=== PATIENT | female | born 1990 | race Native Hawaiian/Other Pacific Islander ===

== ENCOUNTER 2018-07-23 09:37 | Emergency (ER) | payer OTHER ==
[2018-07-23 09:40] VITALS: TEMP 98.4
[2018-07-23] MEDS ORDERED: LIDOCAINE 1%-EPI 1:100,000 30 ML VIAL SQ STA (10:15)
--- NOTE | 2018-07-23 10:19 | ED ---
General Adult HPI - General Chief complaint: Extremity Injury, Lower Stated complaint: torn toenail Source: patient Mode of arrival: ambulatory Limitations: no limitations - History of Present Illness Initial comments: Dictation was produced using [employer] dictation software. please excuse any grammatical, word or spelling errors. Chief Complaint: 19-year-old female with past medical history of migraines kidney stones presents with toenail avulsion. History of Present Illness:-year-old female was moving a bookshelf when a piece of the lower part the bookshelf lifted her total of forcefully. States her toenail feels loose. She has severe pain to her great toe on her right foot. The ROS documented in this emergency department record has been reviewed and confirmed by me. Those systems with pertinent positive or negative responses have been documented in the HPI. All other systems are other negative and/or noncontributory. - Related Data Home Medications Medication Instructions Recorded Confirmed Acetaminophen-Codeine 300-30mg 1 - 2 tab PO Q4HR PRN 07/13/16 07/13/16 [Tylenol w/codeine #3] Pedi Multivit No.25/Folic Acid 600 mcg PO DAILY 07/13/16 07/13/16 [Flintstones Multivit Chew Tab] Previous Rx's Medication Instructions Recorded Ketorolac [Toradol] 10 mg PO Q6HR PRN #15 tab 07/13/16 Metoclopramide HCl [Reglan] 10 mg PO Q6HR PRN #15 tablet 07/13/16 Allergies Allergy/AdvReac Type Severity Reaction Status Date / Time sulfamethoxazole Allergy Rash/Hives Verified 07/23/18 09:40 [From ] trimethoprim [From ] Allergy Rash/Hives Verified 07/23/18 09:40 Review of Systems ROS Statement: Those systems with pertinent positive or pertinent negative responses have been documented in the HPI. ROS Other: All systems not noted in ROS Statement are negative. Past Medical History Past Medical History: No Reported History Additional Past Medical History / Comment(s): migraine, kidney stones History of Any Multi-Drug Resistant Organisms: None Reported Past Surgical History: Section, Orthopedic Surgery Past Anesthesia/Blood Transfusion Reactions: No Reported Reaction Past Psychological History: No Psychological Hx Reported Smoking Status: Current every day smoker Past Alcohol Use History: None Reported Past Drug Use History: None Reported - Past Family History Father Family Medical History: No Reported History General Exam - General Exam Comments Initial Comments: PHYSICAL EXAM: General Impression: Alert and oriented x3, not in acute distress HEENT: Normocephalic atraumatic, extra-ocular movements intact, pupils equal and reactive to light bilaterally, mucous membranes moist. Cardiovascular: Heart regular rate and rhythm, S1&S2 audible, no murmurs, rubs or gallops Chest: Lungs clear to auscultation bilaterally, no rhonchi, no wheeze, no rales Abdomen: Bowel sounds present, abdomen soft, non-tender, non-distended, no organomegaly Musculoskeletal: Pulses present and equal in all extremities, no peripheral edema Motor: Power 5/5 bilaterally, no focal deficits noted Neurological: CN II-XII grossly intact, no focal motor or sensory deficits noted Skin: Intact with no visualized rashes Psych: Normal affect and mood Foot: Right toenail medially is folded. Small defect in the nail for approximately 3 mm bilaterally. Limitations: no limitations Course Vital Signs 07/23/18 09:38 Temperature 98.4 F Pulse Rate 80 Respiratory 20 Rate Blood Pressure 140/67 O2 Sat by Pulse 99 Oximetry Medical Decision Making - Medical Decision Making ED course: 27-year-old female with clinical presentation consistent with partial nail avulsion of the right great toenail. Vital signs upon arrival are within acceptable limits. Lidocaine was used to anesthetize the toe. Nail bed was inspected showing no lacerations. Patient did have history of ingrown toenail to the medial aspect. Patient tolerated procedure well. There was a part of the lateral toenail that was cracked that was partially ingrown that was removed. Wound was irrigated and dressed. Patient has appointment with her sculpture instructor on . She is advised to follow-up or get an earlier appointment for reevaluation of partially avulsed toenail. Patient understandable agreeable to disposition. Patient advised to fill over-the- counter Motrin for pain control. Disposition Clinical Impression: Toenail avulsion Disposition: HOME SELF-CARE Condition: Good Instructions: Nail Avulsion (ED) Additional Instructions: follow up with sculpture instructor as scheduled Is patient prescribed a controlled substance at d/c from ED?: No Referrals: Michele Bhakta MD [Primary Care Provider] - 1-2 days Time of Disposition: 11:00
[2018-07-23] MEDS ORDERED: LIDOCAINE 1% INJ 10MG/ML (20 ML MDV) SQ ONE (10:57)
[2018-07-23 11:31] VITALS: BP 108/79; PULSE 62; RESP 16
== END 2018-07-23 11:32 | disposition home or self-care (01) ==
LOC: EC 09:37
DX: S91.201A Unspecified open wound of right great toe with damage to nail, initial encounter (principal); F17.200 Nicotine dependence, unspecified, uncomplicated; Z88.2 Allergy status to sulfonamides; X58.XXXA Exposure to other specified factors, initial encounter; Y93.89 Activity, other specified; Y92.009 Unspecified place in unspecified non-institutional (private) residence as the place of occurrence of the external cause
CPT/HCPCS: 99283; J2001

== ENCOUNTER → 2019-03-09 | Outpatient (CLI) | payer SELFPAY ==
[2019-03-09 08:41] LABS: Basophils % (A) 1 %; Eosinophils # (A) 0.4 k/uL (0-0.7); Eosinophils % (A) 6 %; HCT 40.5 % (34.0-46.0); HGB 13.3 gm/dL (11.4-16.0); Lymphocytes # (A) 1.9 k/uL (1.0-4.8); Lymphocytes % (A) 29 %; MCH 30.6 pg (25.0-35.0); MCHC 32.9 g/dL (31.0-37.0); Mean Platelet Volume 7.7; Monocytes # (A) 0.3 k/uL (0-1.0); Monocytes % (A) 5 %; Neutrophils # (A) 3.9 k/uL (1.3-7.7); Neutrophils % (A) 57 %; Platelet Count 245 k/uL (150-450); RBC 4.35 m/uL (3.80-5.40); RDW 13.5 % (11.5-15.5); WBC 6.7 k/uL (3.8-10.6)
[2019-03-09 09:00] LABS: INR 0.9 (<1.2); Partial Thromboplastin Time 25.8 sec (22.0-30.0); Prothrombin Time 9.7 sec (9.0-12.0)
--- NOTE | 2019-03-09 09:26 | XR ---
EXAMINATION TYPE: XR chest 2V DATE OF EXAM: 03/09/2019 COMPARISON: NONE HISTORY: History of tobacco use. Chronic bronchitis. TECHNIQUE: Frontal and lateral views of the chest are obtained. FINDINGS: There is no focal air space opacity, pleural effusion, or pneumothorax seen. The cardiac silhouette size is within normal limits. The osseous structures are intact. IMPRESSION: No acute cardiopulmonary process.
[2019-03-09 12:55] LABS: Erythrocyte Sedimentation Rate 18 mm/hr (0-20)
[2019-03-09 17:36] LABS: Albumin 4.4 g/dL (3.80-4.90); Albumin/Globulin Ratio 2.1 (1.60-3.17); Anion Gap 7.4 mmol/L (4.00-12.00); Carbon Dioxide 22.6 mmol/L (21.6-31.8); Globulin 2.1 g/dL (1.6-3.3); Potassium 4.3 mmol/L (3.5-5.5); Total Bilirubin 0.4 mg/dL (0.3-1.2); Total Protein 6.5 g/dL (6.2-8.2)
[2019-03-09 17:37] LABS: C Reactive Protein 0.5 mg/dL (0.0-0.8); LDL Cholesterol,Calculated 90.8 mg/dL (0.0-131.0); VLDL Calculation 17.2 mg/dL (5.00-40.00)
[2019-03-09 18:54] LABS: Hemoglobin A1C 5.2 % (4.0-6.0)
== END | disposition home or self-care (01) ==
LOC: LABWHC1 08:06
PROVIDERS: ATTEND Internal Medicine
DX: J42 Unspecified chronic bronchitis (principal); E03.9 Hypothyroidism, unspecified; D64.9 Anemia, unspecified; E11.9 Type 2 diabetes mellitus without complications; E78.5 Hyperlipidemia, unspecified; N20.0 Calculus of kidney; E66.9 Obesity, unspecified; E55.9 Vitamin D deficiency, unspecified; F17.200 Nicotine dependence, unspecified, uncomplicated
CPT/HCPCS: 36415; 71046; 80053; 80061; 82306; 82550; 83036; 84443; 85025; 85610; 85652; 85730; 86140

== ENCOUNTER → 2019-03-13 | Outpatient (CLI) | payer OTHER ==
--- NOTE | 2019-03-13 18:18 | CT ---
EXAMINATION TYPE: CT abdomen pelvis w con DATE OF EXAM: 03/13/2019 COMPARISON: 07/13/2016 HISTORY: RLQ pain x2 months CT DLP: 1658 mGycm Automated exposure control for dose reduction was used. TECHNIQUE: Helical acquisition of images was performed from the lung bases through the pelvis. CONTRAST: Performed with Oral Contrast and with IV Contrast, patient injected with 100 mL of Isovue 300. FINDINGS: Lung bases are clear. There is no pleural effusion. Heart size is normal. There is no pericardial eff usion. There is low attenuation in the liver consistent with fatty infiltration. Stomach appears normal. Spl een appears normal. Pancreas appears normal. Bile ducts are not dilated. Gallbladder appears normal. There is no adrenal mass. Kidneys show satisfactory contrast opacification. There is no hydronephrosi s. There is no retroperitoneal adenopathy. Ureters are not dilated. Bladder distends smoothly. Uterus is anteverted. There is no free fluid in the pelvis. There is no in guinal hernia. There is no evidence of a pelvic mass. There is no mesenteric edema. There is small umbilical hernia contains fat. There is no ascites. Ther e is no sign of free air. The appendix appears normal. There is no evidence of a bowel obstruction. T here is mild narrowing at L5-S1 disc space. Lumbar vertebra have normal alignment. Bony pelvis is int act. I see no bony destructive process. IMPRESSION: NEGATIVE CT SCAN OF THE ABDOMEN AND PELVIS. FATTY INFILTRATION OF THE LIVER. NORMAL APPENDIX. I DO NO T SEE A CAUSE FOR RIGHT LOWER QUADRANT PAIN.
== END ==
LOC: RADCTMAIN 15:53
PROVIDERS: ATTEND Internal Medicine
DX: K76.0 Fatty (change of) liver, not elsewhere classified (principal); R10.31 Right lower quadrant pain; Z88.1 Allergy status to other antibiotic agents; Z88.2 Allergy status to sulfonamides
CPT/HCPCS: 74177; Q9967

== ENCOUNTER 2020-02-20 20:38 | Emergency (ER) | payer OTHER ==
[2020-02-20] MEDS ORDERED: KETOROLAC 30 MG/ML 1 ML VIAL IVP STA (21:06)
[2020-02-20] MEDS ORDERED: SODIUM POLYSTYRENE SULFONATE 15 GM/60 ML BOTTLE PO ONE (21:07)
[2020-02-20] MEDS ORDERED: INSULIN REGULAR 100 UNIT/ML VIAL IV ONE (21:07)
[2020-02-20] MEDS ORDERED: DEXTROSE 50% SYRINGE 50 ML IVP ONE (21:07)
[2020-02-20 21:38] LABS: Basophils % (A) 0 %; Eosinophils # (A) 0.1 k/uL (0-0.7); Eosinophils % (A) 2 %; HCT 39.3 % (34.0-46.0); HGB 13.5 gm/dL (11.4-16.0); Lymphocytes # (A) 1.8 k/uL (1.0-4.8); Lymphocytes % (A) 38 %; MCH 30.6 pg (25.0-35.0); MCHC 34.3 g/dL (31.0-37.0); MCV 89.3 fL (80.0-100.0); Mean Platelet Volume 7.9; Monocytes # (A) 0.6 k/uL (0-1.0); Monocytes % (A) 12 %; Neutrophils # (A) 2.1 k/uL (1.3-7.7); Neutrophils % (A) 44 %; Platelet Count 247 k/uL (150-450); RDW 12.5 % (11.5-15.5); WBC 4.8 k/uL (3.8-10.6)
--- NOTE | 2020-02-20 21:46 | ED ---
General Adult HPI - General Chief complaint: Neck Pain/Injury Stated complaint: Fever Time Seen by Provider: 02/20/20 20:49 Source: patient, RN notes reviewed, old records reviewed Mode of arrival: ambulatory Limitations: no limitations - History of Present Illness Initial comments: Patient is a 29-year-old female presents for his from today with 2 days of myalgias, minor cough, and fevers. She states that she is mainly concerned because she's been having neck pain with movement when she is having a fever. She reports that once her fever goes down at diminishes. She has a mild headache as well. She denies any known contrast contacts of any sick patient's or Coban positive Patient. She reports she's been at home for the past few weeks only with her children. Patient states that she has again Tylenol at 7 PM. She states she feels that she's Maxalt maxed out on her Tylenol today has not had any Motrin. - Related Data Home Medications Medication Instructions Recorded Confirmed Pedi Multivit No.25/Folic Acid 600 mcg PO DAILY 07/13/16 02/20/20 [Flintstones Multivit Chew Tab] Allergies Allergy/AdvReac Type Severity Reaction Status Date / Time sulfamethoxazole Allergy Rash/Hives Verified 07/23/18 09:40 [From ] trimethoprim [From ] Allergy Rash/Hives Verified 07/23/18 09:40 Review of Systems ROS Statement: Those systems with pertinent positive or pertinent negative responses have been documented in the HPI. ROS Other: All systems not noted in ROS Statement are negative. Past Medical History Past Medical History: No Reported History Additional Past Medical History / Comment(s): migraine, kidney stones History of Any Multi-Drug Resistant Organisms: None Reported Past Surgical History: Section, Orthopedic Surgery Past Anesthesia/Blood Transfusion Reactions: No Reported Reaction Past Psychological History: No Psychological Hx Reported Smoking Status: Current every day smoker Past Alcohol Use History: None Reported Past Drug Use History: Marijuana - Past Family History Father Family Medical History: No Reported History General Exam - General Exam Comments Initial Comments: Alert and oriented well-appearing 29-year-old female. No distress. Limitations: no limitations General appearance: alert, in no apparent distress Head exam: Present: atraumatic, normocephalic, normal inspection Eye exam: Present: normal appearance, PERRL, EOMI. Absent: scleral icterus, conjunctival injection, periorbital swelling ENT exam: Present: normal exam, mucous membranes moist Neck exam: Present: normal inspection, full ROM, other (no cervical tendernes. Negative kernig and brudzinski test. ). Absent: tenderness, meningismus, lymphadenopathy Respiratory exam: Present: normal lung sounds bilaterally. Absent: respiratory distress, wheezes, rales, rhonchi, stridor Cardiovascular Exam: Present: regular rate, normal rhythm, normal heart sounds. Absent: systolic murmur, diastolic murmur, rubs, gallop, clicks GI/Abdominal exam: Present: soft, normal bowel sounds. Absent: distended, tenderness, guarding, rebound, rigid Psychiatric exam: Present: normal affect, normal mood Skin exam: Present: warm, dry, intact, normal color. Absent: rash Course Vital Signs 02/20/20 02/20/20 20:40 22:30 Temperature 98.3 F 98.0 F Pulse Rate 95 60 Respiratory 18 17 Rate Blood Pressure 119/76 123/89 O2 Sat by Pulse 98 99 Oximetry Medical Decision Making - Medical Decision Making This patient's a 29-year-old female presents today for chief complaint of intermittent fevers for the past 2 days, complaining of some neck pain and muscle aches and headaches of related to this. She reports that this only occurs when her fever is occurring but did not reports the pain diminishes once or fevers controlled with Tylenol or Motrin. Upon arrival here she has no fever. She has negative meningeal signs negative Kernig's and Brudzinski. No photophobia. She is no neurological deficits. No rashes. She otherwise appears well. She did complain of minor cough. Patient had blood work reviewed. No leukocytosis. Covid swab is negative. Chest x-rays negative for any acute process. Discussed likely viral syndrome. Neck has no tenderness and normal range of motion since and no stiffness at this time. Discussed was likely myalgias related to a viral syndrome. Discussed following up with primary care doctor. - Lab Data Result diagrams: 02/20/20 21:02/20/20 21:20 Lab Results 02/20/20 02/20/20 02/20/20 Range/Units : 21:20 21:25 WBC 4.8 (3.8-10.6) k/uL RBC 4.40 (3.80-5.40) m/uL Hgb 13.5 (11.4-16.0) gm/dL Hct 39.3 (34.0-46.0) % MCV 89.3 (80.0-100.0) fL MCH 30.6 (25.0-35.0) pg MCHC 34.3 (31.0-37.0) g/dL RDW 12.5 (11.5-15.5) % Plt Count 247 (150-450) k/uL Neutrophils % 44 % Lymphocytes % 38 % Monocytes % 12 % Eosinophils % 2 % Basophils % 0 % Neutrophils # 2.1 (1.3-7.7) k/uL Lymphocytes # 1.8 (1.0-4.8) k/uL Monocytes # 0.6 (0-1.0) k/uL Eosinophils # 0.1 (0-0.7) k/uL Basophils # 0.0 (0-0.2) k/uL Sodium 136 L (137-145) mmol/L Potassium 3.4 L (3.5-5.1) mmol/L Chloride 103 (98-107) mmol/L Carbon Dioxide 25 (22-30) mmol/L Anion Gap 8 mmol/L BUN 8 (7-17) mg/dL Creatinine 0.63 (0.52-1.04) mg/dL Est GFR (CKD-EPI)AfAm >90 (>60 ml/min/1.73 sqM) Est GFR (CKD-EPI)NonAf >90 (>60 ml/min/1.73 sqM) Glucose 102 H (74-99) mg/dL Calcium 9.1 (8.4-10.2) mg/dL Total Bilirubin 0.7 (0.2-1.3) mg/dL AST 25 (14-36) U/L ALT 19 (4-34) U/L Alkaline Phosphatase 64 (38-126) U/L C-Reactive Protein 15.9 H (<10.0) mg/L Total Protein 7.4 (6.3-8.2) g/dL Albumin 4.2 (3.5-5.0) g/dL Coronavirus (PCR) Not Detected (Not Detectd) - Radiology Data Radiology results: report reviewed Chest x-rays negative for acute process. Disposition Clinical Impression: Neck muscle spasm, Hx of fever Disposition: HOME SELF-CARE Condition: Good Instructions (If sedation given, give patient instructions): Cervical Strain (ED), Neck Pain (ED) Additional Instructions: Monitor for any worsening signs or symptoms. Follow-up with primary care physician or return to the emergency department if any alarming signs or symptoms to occur or continue to persist after a few days. Alternate between Motrin and Tylenol, as most likely a viral syndrome. Is patient prescribed a controlled substance at d/c from ED?: No Referrals: Urban Sims MD [Primary Care Provider] - 1-2 days Time of Disposition: 22:11
--- NOTE | 2020-02-20 21:51 | XR ---
EXAMINATION TYPE: XR chest 1V DATE OF EXAM: 02/20/2020 COMPARISON: 03/09/19 HISTORY: Chest pain TECHNIQUE: Single frontal view of the chest is obtained. FINDINGS: There is no focal air space opacity, pleural effusion, or pneumothorax seen. The cardiac silhouette size is within normal limits. The osseous structures are intact. IMPRESSION: 1. No acute process.
[2020-02-20 21:57] LABS: ALT 19 U/L (4-34); AST 25 U/L (14-36); African American GFR (CKD) >90 (>60 ml/min/1.73 sqM); Albumin 4.2 g/dL (3.5-5.0); Alkaline Phosphatase 64 U/L (38-126); Anion Gap 8 mmol/L; Blood Urea Nitrogen 8 mg/dL (7-17); C Reactive Protein 15.9 mg/L (<10.0); Calcium 9.1 mg/dL (8.4-10.2); Carbon Dioxide 25 mmol/L (22-30); Chloride 103 mmol/L (98-107); Glucose 102 mg/dL (74-99); Non-African American GFR(CKD) >90 (>60 ml/min/1.73 sqM); Potassium 3.4 mmol/L (3.5-5.1); Sodium 136 mmol/L (137-145); Total Bilirubin 0.7 mg/dL (0.2-1.3); Total Protein 7.4 g/dL (6.3-8.2)
[2020-02-20] MEDS ORDERED: CALCIUM GLUCONATE 1 GM in SODIUM CHLORIDE 0.9% 100 ML IVPB ONE (22:00)
[2020-02-20 22:38] VITALS: BP 123/89; PULSE 60; RESP 17; TEMP 98
== END 2020-02-20 22:32 | disposition home or self-care (01) ==
LOC: EC 20:38
DX: M62.838 Other muscle spasm (principal); R05 Cough; F17.200 Nicotine dependence, unspecified, uncomplicated; Z88.1 Allergy status to other antibiotic agents; Z88.2 Allergy status to sulfonamides; Z87.898 Personal history of other specified conditions
CPT/HCPCS: 36415; 80053; 85025; 86140; 87635; 71045; 99284; 96374; J1885

== ENCOUNTER → 2020-12-24 | Outpatient (CLI) | payer BC, OTHER ==
[2020-12-24 08:51] VITALS: BP 117/71; PULSE 67; RESP 18; TEMP 98.1
--- NOTE | 2020-12-24 10:12 | P.HPOB ---
History of Present Illness H&P Date: 12/24/20 Chief Complaint: The patient is here for her routine gynecologic exam. This is a 30-year-old with an LMP of 12/16/2020. She is status post tubal ligation. The patient is here to establish with this office. The patient has multiple complaints. She states she has been having sharp stabbing right lower quadrant pains intermittently during the past few months. She states they tend to occur about 2 times per week and can last about 15 seconds. The pain can be fairly severe and she rates it at a 10 out of 10 at those times. She states the pain is 0 out of 10 at this time. She does not believe it is related to her menstrual period and tends to be random. She seems to notice it more when she gets out of bed or goes to a standing position. She has also been experiencing a slight vaginal discharge which is clear and watery during the past 6 months. She denies vaginal odor and states it is thin. She has also been experiencing some vulvar redness and irritation during the past 4 days. She states it makes her feel like she wants to put cold compresses on it. She has been experiencing urinary frequency and she voids small amounts without dysuria. 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 Her menstrual periods are regular every month, but her last 2 seem to be light and more pink or orange without her typical flow. She wonders if there is a chance that she is even though she had her tubes tied with her last . Review of Systems The patient has lost 10-15 pounds over the last 4 months. She has done this with diet and exercise and this was intentional. She denies respiratory, cardiac, or G.I. problems. Past Medical History Additional Past Medical History / Comment(s): migraine, kidney stones, TMJ. Past DIRECTOR PUBLIC SERVICE history: Chlamydia many years ago. History of Any Multi-Drug Resistant Organisms: None Reported Past Surgical History: Section, Orthopedic Surgery, Tubal Ligation Additional Past Surgical History / Comment(s): 3. Knee surgery. Past Anesthesia/Blood Transfusion Reactions: No Reported Reaction Past Psychological History: Depression Smoking Status: Current every day smoker (3 cigarettes per day) Past Alcohol Use History: None Reported Additional Past Alcohol Use History / Comment(s): She previously smoked a half a pack of cigarettes per day. Past Drug Use History: Marijuana Additional History: She has been since 2019 and has been with her since about 2008. 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 - Past Family History Father Family Medical History: No Reported History Additional Family Medical History / Comment(s): Bipolar disorder and anxiety. Paternal grandmother had breast cancer and diabetes. Paternal aunt had cervical cancer. Mother Family Medical History: Hypertension, Rheumatoid Arthritis (RA) Medications and Allergies Home Medications Medication Instructions Recorded Confirmed Type No Known Home Medications 12/24/20 12/24/20 History Allergies Allergy/AdvReac Type Severity Reaction Status Date / Time sulfamethoxazole Allergy Rash/Hives Verified 12/24/20 08:46 [From ] trimethoprim [From ] Allergy Rash/Hives Verified 12/24/20 08:46 Exam Vital Signs Temp Pulse Resp BP Pulse Ox 12/24/20 08:47 98.1 F 67 18 117/71 98 Intake and Output 12/23/20 12/24/20 12/24/20 22:59 06:59 14:59 Other: Weight 89.811 kg Height 5 feet 6-1/2 inches, weight 198 pounds, BMI 31.5. This is a well-developed well-nourished female who is alert and oriented times 3 in no acute distress. HEENT: Within normal limits. NECK: Supple without mass or thyromegaly. CHEST AND LUNGS: Clear to auscultation. HEART: Regular rate and rhythm. BREASTS: Are without mass or discharge. AXILLARY EXAM: Negative for adenopathy. BACK: Negative for CVA tenderness. ABDOMEN: Soft, with mild right lower quadrant tenderness over the right part of her low transverse incision. There is also a slight firmness of the subcutaneous tissue at this site and measures approximately 3 x 5 cm. The rest of the abdomen is soft and nontender. The abdomen is nondistended. PELVIC EXAM: Normal external genitalia with minimal erythema. Cervix and vagina appear normal. There is a small amount of mucousy todd discharge. There is no evidence of prolapse. The uterus is midposition, nongravid size and nontender. There is no cervical motion tenderness. There are no palpable adnexal masses or tenderness. But there is again some firmness in the right low transverse abdominal scar with mild tenderness. RECTAL EXAM: negative for mass or tenderness. EXTREMITIES: Nontender. IMPRESSION: 1. 30-year-old perimenopausal female who is status post tubal ligation with right low transverse incision firmness and tenderness. 2. Several month history of brief intermittent right lower quadrant abdominal pain which seems to correspond with her right incision firmness and tenderness. Differential diagnosis will include endometriosis in the low transverse abdominal incision scar, ovarian cyst, pelvic adhesions, hydrosalpinx, GI pain, and less likely UTI. 3. Urinary frequency without dysuria. 4. Thin clear vaginal discharge. Differential diagnosis will include bacterial vaginosis, physiologic discharge, Trichomonas, and less likely, freddy vaginitis. 5. Vulvar irritation which may or may not be related to her vaginal discharge. 6. Abnormally light menstrual periods 2 months. PLAN: 1. Pap smear cotest was performed. 2. Self breast awareness was discussed with the patient. 3. Affirm vaginitis panel was obtained from the vagina. If this is negative, consider Kenalog cream to the vulva when necessary. 4. GC and Chlamydia testing was obtained from the cervix. 5. Pelvic ultrasound was recommended. The order slip was given to the patient for this. 6. Urine has been obtained for urinalysis and culture with sensitivity. Urine hCG will also be obtained. 7. If pelvic ultrasound is negative for adnexal abnormalities or if it shows any abnormal subcutaneous findings near the right side of the incision, consider referral to her GRID CASTING MACHINE OPERATOR HELPER who did her section for possible endometriosis in the scar. 8. As above and she will also return in one year for her well woman examination.
[2020-12-24 15:35] LABS: Appearance,Urine Clear (Clear); Bilirubin,Urine Negative (Negative); Blood,Urine Small (Negative); Color,Urine Yellow; Glucose,Urine (UA) Negative (Negative); Ketones,Urine Negative (Negative); Leukocyte Esterase,Urine Negative (Negative); Mucus,Urine Many /hpf; Nitrite,Urine Negative (Negative); Protein,Urine Negative (Negative); RBC,Urine 3 /hpf (0-5); Specific Gravity,Urine 1.023 (1.001-1.035); Squamous Epithelial Cell,Urine 1 /hpf (0-4); Urobilinogen,Urine <2.0 mg/dL (<2.0); WBC,Urine 1 /hpf (0-5)
[2020-12-25 02:01] LABS: Gardnerella Positive (Negative); Source Vagina; Trichomonas Negative (Negative)
--- NOTE | 2020-12-26 10:38 | P.PN ---
Progress Note - Text Progress Note Date: 12/26/20 Testing results from 12/24/20 include negative urine culture, negative urine HCG and Affirm testing positive for Gardnerella. Affirm was negative for Alexandra and Trichomonas. GC and Chlamydia testing are pending. The patient was notified by phone. The patient has had a clear vaginal discharge with vulvar irritation. Imp: Bacterial Vaginosis Plan: metronidazole 500mg PO BID x 7d. The electronic prescription has been sent to [facility] on . She will call if symptoms are not improved. Await GC and Chlamydia results.
[2020-12-31 12:54] LABS: C. trachomatis,PCR Negative (Neg,Equiv); Chlamydia trachomatis Source Cervix; N. gonorrhoeae,PCR Negative (Neg,Equiv); Neisseria Source Cervix
--- NOTE | 2020-12-31 15:21 | P.PN ---
Progress Note - Text Progress Note Date: 12/31/20 OUTPATIENT FOLLOW-UP NOTE TEST(S)/RESULTS: Test results from 12/24/2020 include negative GC and negative chlamydia testing. METHOD OF NOTIFICATION: A message with these results was left on the patient's voicemail. PATIENT COMMENTS: DIAGNOSIS: Negative GC and chlamydia screening DISCUSSION: She is aware that I have recommended a pelvic ultrasound. PLAN: Await pelvic ultrasound to be done. Also please see the 12/26/2020 progress note where additional tests results were given to the patient.
--- NOTE | 2021-01-01 09:44 | P.PN ---
Progress Note - Text Progress Note Date: 01/01/21 OUTPATIENT FOLLOW-UP NOTE TEST(S)/RESULTS: Test results from 12/24/2020 include negative Pap smear and negative high risk HPV testing. The Pap smear noted that there was a shift in the vaginal cipriano suggestive of bacterial vaginosis. She was treated for bacterial vaginosis following the positive Gardnerella testing done at the same time as the Pap smear. METHOD OF NOTIFICATION: She was notified by phone. PATIENT COMMENTS: She is currently on the medication for the bacterial vaginosis. DIAGNOSIS: Negative Pap smear cotest. DISCUSSION: See the progress notes from the past week for the additional test results given to the patient. PLAN: She was advised to return in one year for her annual well woman exam.
== END | disposition home or self-care (01) ==
LOC: WWCWWP 08:26
PROVIDERS: ATTEND Obstetrics & Gynecology
DX: Z01.419 Encounter for gynecological examination (general) (routine) without abnormal findings (principal); Z98.51 Tubal ligation status; R10.31 Right lower quadrant pain; R35.0 Frequency of micturition; N76.89 Other specified inflammation of vagina and vulva; N92.6 Irregular menstruation, unspecified; B96.89 Other specified bacterial agents as the cause of diseases classified elsewhere; F17.210 Nicotine dependence, cigarettes, uncomplicated
CPT/HCPCS: 81001; 81025; 87086; 87480; 87491; 87510; 87591; 87660

== ENCOUNTER → 2021-01-21 | Outpatient (CLI) | payer BC, OTHER ==
--- NOTE | 2021-01-21 14:52 | US ---
EXAMINATION TYPE: US transvaginal DATE OF EXAM: 01/21/2021 COMPARISON: NONE CLINICAL HISTORY: R10.2 Pelvic Pain,R68.89 general symptoms and sign. TECHNIQUE: Transvaginal (TV). Date of LMP: 01-13-21 EXAM MEASUREMENTS: Uterus: 9.8 x 5.2 x 6.3 cm Endometrial Stripe: 0.6 cm Right Ovary: 3.4 x 2.4 x 2.6 cm Left Ovary: 2.2 x 1.4 x 1.6 cm 1. Uterus: Anteverted wnl 2. Endometrium: wnl 3. Right Ovary: Dominant follicle measures approximately 2.4 x 1.9 x 1.8 cm 4. Left Ovary: wnl 5. Bilateral Adnexa: wnl 6. Posterior cul-de-sac: wnl IMPRESSION: Left ovarian cyst.
--- NOTE | 2021-01-22 11:20 | P.PN ---
Progress Note - Text Progress Note Date: 01/22/21 OUTPATIENT FOLLOW-UP NOTE TEST(S)/RESULTS: Pelvic ultrasound done on 01/21/2021 was done as transvaginal only. There is a 2.4 x 1.9 cm follicular-type cyst on the right ovary. The pelvic ultrasound was otherwise unremarkable. The right low transverse incision wear firmness was noted on exam was not evaluated. The order had indicated this abnormal finding on exam. METHOD OF NOTIFICATION: The patient was notified by phone. PATIENT COMMENTS: The patient states that she was told that she did not have an adequately full bladder and was asked to empty her bladder and transvaginal ultrasound was done. The patient states the firmness in the right part of her scar is fairly recent and was not noticed the first couple years after her . DIAGNOSIS: Small right follicular type cyst on the right ovary. DISCUSSION: I reviewed the ultrasound with Dr. Cain, the radiologist, he states the ultrasound department will contact the patient to have her come in to complete the pelvic ultrasound and to evaluate the right low transverse incision area of concern. The patient was told to expect a call to schedule this. After this is completed, I will consider referring her to her LOCATOR SPECIALIST, Dr. Crowell, who did 2 of her 3 C-sections including her last one. Differential diagnosis will include scar endometriosis or other abnormal growth in the area of her scar such as a desmoid growth. Also in the differential diagnosis will be inflamed scar tissue. PLAN: The patient will return to complete the pelvic ultrasound which will include evaluation of the firmness in the right aspect of the scar.
== END | disposition home or self-care (01) ==
LOC: RADUSWWP 13:20
PROVIDERS: ATTEND Obstetrics & Gynecology
DX: N83.202 Unspecified ovarian cyst, left side (principal); N83.01 Follicular cyst of right ovary
CPT/HCPCS: 76830

== ENCOUNTER 2021-11-19 20:14 | Emergency (ER) | payer BC, OTHER ==
[2021-11-19 20:31] VITALS: BP 121/71; RESP 18; TEMP 99.4
[2021-11-19] MEDS ORDERED: SODIUM CHLORIDE 0.9% 1,000 ML IV STA (20:40)
[2021-11-19] MEDS ORDERED: KETOROLAC 15 MG/ML 1 ML VIAL IVP STA (20:40)
--- NOTE | 2021-11-19 20:45 | ED ---
General Adult HPI - General Chief complaint: Headache Stated complaint: Headache, Covid+ Time Seen by Provider: 11/19/21 20:35 Source: patient, RN notes reviewed, old records reviewed Mode of arrival: ambulatory Limitations: no limitations - History of Present Illness Initial comments: 30-year-old female patient presents to the emergency room with 1 day of fever, body aches, and headaches with nausea. Denies vomiting or diarrhea. Patient states that her children tested positive for coronavirus and influenza. She says that she's been trying to hydrate but her headache became so severe and could not get relief with Tylenol and Motrin so she came to the emergency room. She has a history of C-sections, no other abdominal surgeries. -: days(s) (1) Location: head Radiation: non-radiation Severity scale (1-10): 10 Quality: constant Consistency: constant Improves with: none Worsens with: none Associated Symptoms: fever/chills, headaches, malaise, nausea/vomiting (no vomiting) Treatments Prior to Arrival: other (tylenol and motrin) - Related Data Home Medications Medication Instructions Recorded Confirmed No Known Home Medications 11/19/21 11/19/21 Allergies Allergy/AdvReac Type Severity Reaction Status Date / Time sulfamethoxazole Allergy Rash/Hives Verified 11/19/21 21:37 [From ] trimethoprim [From Julra] Allergy Rash/Hives Verified 11/19/21 21:37 Review of Systems ROS Statement: Those systems with pertinent positive or pertinent negative responses have been documented in the HPI. ROS Other: All systems not noted in ROS Statement are negative. Past Medical History Past Medical History: No Reported History Additional Past Medical History / Comment(s): migraine, kidney stones, TMJ. 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 History of Any Multi-Drug Resistant Organisms: None Reported Past Surgical History: Section, Orthopedic Surgery, Tubal Ligation Additional Past Surgical History / Comment(s): 3. Knee surgery. Past Anesthesia/Blood Transfusion Reactions: No Reported Reaction Past Psychological History: Depression Smoking Status: Current every day smoker Past Alcohol Use History: None Reported Past Drug Use History: Marijuana - Past Family History Father Family Medical History: No Reported History Additional Family Medical History / Comment(s): Bipolar disorder and anxiety. Paternal grandmother had breast cancer and diabetes. Paternal aunt had cervical cancer. Mother Family Medical History: Hypertension, Rheumatoid Arthritis (RA) General Exam Limitations: no limitations General appearance: alert, in no apparent distress Head exam: Present: atraumatic, normocephalic, normal inspection Eye exam: Present: normal appearance, PERRL, EOMI. Absent: scleral icterus ENT exam: Present: normal exam, normal oropharynx, mucous membranes moist Neck exam: Present: normal inspection. Absent: tenderness, meningismus, full ROM, thyromegaly Respiratory exam: Present: normal lung sounds bilaterally. Absent: respiratory distress, wheezes, rales, rhonchi, stridor, chest wall tenderness, accessory muscle use Cardiovascular Exam: Present: regular rate, normal rhythm, normal heart sounds. Absent: JVD GI/Abdominal exam: Present: soft. Absent: distended, tenderness Extremities exam: Present: full ROM, normal capillary refill. Absent: pedal edema Neurological exam: Present: alert, oriented X3, normal gait Psychiatric exam: Present: normal affect, normal mood Skin exam: Present: warm, intact, normal color, other (moist). Absent: cyanosis, erythema Course Vital Signs 11/19/21 11/19/21 20:28 22:22 Temperature 99.4 F Pulse Rate 76 67 Respiratory 18 18 Rate Blood Pressure 121/71 O2 Sat by Pulse 97 98 Oximetry Medical Decision Making - Medical Decision Making Patient presents to the emergency room with complaints of headache, fever and chills. Patient states that her kids are positive for coronavirus and influenza. She did test positive for coronavirus today. She was given a liter of saline and Toradol and is feeling better. Oxygen saturation is 98% on room air and she is in no acute distress, lungs are clear to auscultation. She was instructed to take Tylenol and Motrin alternating for body aches and fevers, take vitamin C, vitamin D and zinc daily. Melatonin to help her sleep. She was also given Zofran to go home with for any nausea. Return to the emergency room with any new or concerning symptoms. My attending is dr. cuevas - Lab Data Lab Results 11/19/21 Range/Units 21:01 Influenza Type A (PCR) Not Detected (Not Detectd) Influenza Type B (PCR) Not Detected (Not Detectd) RSV (PCR) Not Detected (Not Detectd) SARS-CoV-2 (PCR) Detected A (Not Detectd) Disposition Clinical Impression: COVID-19 Disposition: HOME SELF-CARE Condition: Good Instructions (If sedation given, give patient instructions): Coronavirus Disease 2019 (COVID-19), Acute Headache (ED) Additional Instructions: Take vitamin C, vitamin D and zinc daily. Increase your fluid intake. Tylenol and/or Motrin as needed for body aches and pains. Take Zofran as needed for any nausea. Self quarantine for 10 days from symptom onset and 24 hours without a fever. If you do not have any symptoms or fever after 5 days you can go into public with just a mask for the remaining 5 days of quarantine. Return to the emergency room with any new or concerning symptoms. Is patient prescribed a controlled substance at d/c from ED?: No Referrals: Mihcele Bhakta MD [Primary Care Provider] - 1-2 days Time of Disposition: 22:00
[2021-11-19] MEDS ORDERED: ONDANSETRON 4 MG ODT STARTER PACK 2 TAB BTL PO STA (22:01)
[2021-11-19 22:25] VITALS: PULSE 67
== END 2021-11-19 22:30 | disposition home or self-care (01) ==
LOC: EC 20:14
DX: U07.1 COVID-19 (principal); F17.200 Nicotine dependence, unspecified, uncomplicated; F12.90 Cannabis use, unspecified, uncomplicated
CPT/HCPCS: 87636; 99284; 96374; 96361; J1885; S0119

== ENCOUNTER 2022-11-02 19:19 | Emergency (ER) | payer BC, OTHER ==
[2022-11-02 19:45] VITALS: TEMP 98.2
--- NOTE | 2022-11-02 19:59 | XR ---
EXAMINATION TYPE: XR chest 2V DATE OF EXAM: 11/02/2022 COMPARISON: 02/20/2020 HISTORY: Cough TECHNIQUE: FINDINGS: Heart and mediastinum are normal. Lungs are clear. Diaphragm is normal. Bony thorax is inta ct. The pulmonary vascularity is normal. IMPRESSION: Normal chest. No change.
[2022-11-02] MEDS ORDERED: IPRATROPIUM-ALBUTEROL 3 ML NEB INHALATION STA (21:04)
--- NOTE | 2022-11-02 21:04 | ED ---
SOB HPI - General Chief Complaint: Shortness of Breath Stated Complaint: RANDI,Irregular HR Time Seen by Provider: 11/02/22 21:03 Source: patient, RN notes reviewed, old records reviewed Mode of arrival: ambulatory Limitations: no limitations - History of Present Illness Initial Comments: This is a 31-year-old female to the emergency department for evaluation. Patient Dese for evaluation of difficulty breathing difficulty breathing and weakness for some unknown amount of time. Patient has no fevers, no travel show sick contacts patient does follow-up with OB also having some abdominal pain no vaginal bleeding. Difficulty of breathing is been for a few weeks now with no improvement. MD Complaint: shortness of breath, cough ( ), anxiety -: week(s) Severity scale (1-10): 2 Quality: dull, aching Consistency: intermittent Improves With: nothing Worsens With: nothing Context: anxiety Associated Symptoms: denies other symptoms, abdominal pain Treatments Prior to Arrival: none - Related Data Home Medications Medication Instructions Recorded Confirmed No Known Home Medications 11/19/21 11/02/22 Allergies Allergy/AdvReac Type Severity Reaction Status Date / Time sulfamethoxazole Allergy Rash/Hives Verified 11/02/22 22:15 [From ] trimethoprim [From ] Allergy Rash/Hives Verified 11/02/22 22:15 Review of Systems ROS Statement: Those systems with pertinent positive or pertinent negative responses have been documented in the HPI. ROS Other: All systems not noted in ROS Statement are negative. Past Medical History Past Medical History: No Reported History Additional Past Medical History / Comment(s): migraine, kidney stones, TMJ. 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 History of Any Multi-Drug Resistant Organisms: None Reported Past Surgical History: Section, Orthopedic Surgery, Tubal Ligation Additional Past Surgical History / Comment(s): 3. Knee surgery. Past Anesthesia/Blood Transfusion Reactions: No Reported Reaction Past Psychological History: Depression Smoking Status: Current every day smoker Past Alcohol Use History: None Reported Past Drug Use History: Marijuana - Past Family History Father Family Medical History: No Reported History Additional Family Medical History / Comment(s): Bipolar disorder and anxiety. Paternal grandmother had breast cancer and diabetes. Paternal aunt had cervical cancer. Mother Family Medical History: Hypertension, Rheumatoid Arthritis (RA) General Exam Limitations: no limitations General appearance: alert, in no apparent distress Head exam: Present: atraumatic, normocephalic, normal inspection Eye exam: Present: normal appearance, PERRL, EOMI. Absent: scleral icterus, conjunctival injection, periorbital swelling ENT exam: Present: normal exam, mucous membranes moist Neck exam: Present: normal inspection. Absent: tenderness, meningismus, lymphadenopathy Respiratory exam: Present: normal lung sounds bilaterally. Absent: respiratory distress, wheezes, rales, rhonchi, stridor Cardiovascular Exam: Present: regular rate, normal rhythm, normal heart sounds. Absent: systolic murmur, diastolic murmur, rubs, gallop, clicks GI/Abdominal exam: Present: soft, normal bowel sounds. Absent: distended, tenderness, guarding, rebound, rigid Extremities exam: Present: normal inspection, full ROM, normal capillary refill. Absent: tenderness, pedal edema, joint swelling, calf tenderness Back exam: Present: normal inspection Neurological exam: Present: alert, oriented X3, CN II-XII intact Psychiatric exam: Present: normal affect, normal mood Skin exam: Present: warm, dry, intact, normal color. Absent: rash Course Vital Signs 11/02/22 11/02/22 11/02/22 19:43 21:29 21:41 Temperature 98.2 F Pulse Rate 75 78 80 Respiratory 18 Rate Blood Pressure 141/84 O2 Sat by Pulse 99 Oximetry 11/03/22 02:49 Temperature Pulse Rate 71 Respiratory 15 Rate Blood Pressure 128/74 O2 Sat by Pulse 100 Oximetry - Reevaluation(s) Reevaluation #1: 11/02/22 Medical records reviewed Reevaluation #2: 11/02/22 Patient has no change in symptoms here in the ER Reevaluation #3: 11/02/22 Patient informed results and questions answered Reevaluation #4: 11/02/22 Differential Dyspnea: Coronary syndrome, arrhythmia, tamponade, asthma, COPD, pulmonary embolism, pneumonia, pneumothorax, pulmonary effusion, anaphylaxis, diabetic ketoacidosis, flailed chest, pulmonary contusion, diaphragmatic rupture, anemia, neuromuscular, this is not meant to be an all-inclusive list. Reevaluation #5: 11/02/22 Was pt. sent in by a medical professional or institution? @ -no Did you speak to anyone other than the patient for history? @ -no Did you review nursing and triage notes? @ -agree Were old charts reviewed? @ -no Differential Diagnosis? @ -prior EKG interpreted by me (3pts min.)? @ -[none] X-rays interpreted by me (1pt min.)? @ -[none] CT interpreted by me (1pt min.)? @ -[none] U/S interpreted by me (1pt. min.)? @ -[none] What testing was considered but not performed? (CT, X-rays, U/S, labs)? Why? @ no What meds were considered but not given? Why? @ -[none] Did you discuss the management of the patient with other professionals? @ -no Did you reconcile home meds? @ -[none] Was smoking cessation discussed for >3mins.? @ -[none] Was critical care preformed (if so, how long)? @ -[none] Were there social determinants of health that impacted care today? How? (Homelessness, low income, unemployed, alcoholism, drug addiction, transportation, low edu. Level, literacy, decrease access to med. care, senior care, rehab)? @ -no Was there de-escalation of care discussed even if they declined? (Discuss DNR or withdrawal of care, Hospice)? @ -no What co-morbidities impacted this encounter? (DM, HTN, Smoking, COPD, CAD, Cancer, CVA, Hep., AIDS, mental health diagnosis, sleep apnea, morbid obesity)? @ -no Was patient admitted / discharged? @ -dc Undiagnosed new problem with uncertain prognosis? @ -[none] Drug Therapy requiring intensive monitoring for toxicity (Heparin, Nitro, Insulin, Cardizem)? @ -[none] Were any procedures done? @ -[none] Diagnosis/symptom? @ -[default] Acute, or Chronic, or Acute on Chronic? @ -[default] Uncomplicated (without systemic symptoms) or Complicated (systemic symptoms)? @ -[default] Side effects of treatment? @ -[none] Exacerbation, Progression, or Severe Exacerbation] @ -[no] Poses a threat to life or bodily function? @ -[no] Medical Decision Making - Medical Decision Making 31 female to the emergency department for chest pain shortness of breath weakness abdominal pain on for weeks now. No improvement in symptoms despite time. Patient is informed of all of normal results here in the ER can be discharged home - Lab Data Result diagrams: 11/03/22 00:58 11/03/22 00:58 Lab Results 11/02/22 11/03/22 11/03/22 Range/Units 19:45 00:58 00:58 WBC 10.0 (3.8-10.6) k/uL RBC 3.99 (3.80-5.40) m/uL Hgb 12.8 (11.4-16.0) gm/dL Hct 35.8 (34.0-46.0) % MCV 89.8 (80.0-100.0) fL MCH 32.0 (25.0-35.0) pg MCHC 35.6 (31.0-37.0) g/dL RDW 12.0 (11.5-15.5) % Plt Count 259 (150-450) k/uL MPV 8.3 Neutrophils % 48 % Lymphocytes % 38 % Monocytes % 6 % Eosinophils % 5 % Basophils % 1 % Neutrophils # 4.8 (1.3-7.7) k/uL Lymphocytes # 3.8 (1.0-4.8) k/uL Monocytes # 0.6 (0-1.0) k/uL Eosinophils # 0.5 (0-0.7) k/uL Basophils # 0.1 (0-0.2) k/uL Sodium (137-145) mmol/L Potassium (3.5-5.1) mmol/L Chloride (98-107) mmol/L Carbon Dioxide (22-30) mmol/L Anion Gap mmol/L BUN (7-17) mg/dL Creatinine (0.52-1.04) mg/dL Est GFR (CKD-EPI)AfAm (>60 ml/min/1.73 sqM) Est GFR (CKD-EPI)NonAf (>60 ml/min/1.73 sqM) Glucose (74-99) mg/dL Plasma Lactic Acid Gideon (0.7-2.0) mmol/L Calcium (8.4-10.2) mg/dL Total Bilirubin (0.2-1.3) mg/dL AST (14-36) U/L ALT (4-34) U/L Alkaline Phosphatase (38-126) U/L Total Protein (6.3-8.2) g/dL Albumin (3.5-5.0) g/dL Amylase (30-110) U/L Lipase (23-300) U/L Urine Color Colorless Urine Appearance Clear (Clear) Urine pH 7.0 (5.0-8.0) Ur Specific [place] 1.007 (1.001-1.035) Urine Protein Negative (Negative) Urine Glucose (UA) Negative (Negative) Urine Ketones Negative (Negative) Urine Blood Small H (Negative) Urine Nitrite Negative (Negative) Urine Bilirubin Negative (Negative) Urine Urobilinogen <2.0 (<2.0) mg/dL Ur Leukocyte Esterase Negative (Negative) Urine RBC 2 (0-5) /hpf Ur Squamous Epith Cells <1 (0-4) /hpf Urine HCG, Qual (Not Detectd) Influenza Type A (PCR) Not Detected (Not Detectd) Influenza Type B (PCR) Not Detected (Not Detectd) RSV (PCR) Not Detected (Not Detectd) SARS-CoV-2 (PCR) Not Detected (Not Detectd) 11/03/22 11/03/22 11/03/22 Range/Units 00:58 00:58 00:58 WBC (3.8-10.6) k/uL RBC (3.80-5.40) m/uL Hgb (11.4-16.0) gm/dL Hct (34.0-46.0) % MCV (80.0-100.0) fL MCH (25.0-35.0) pg MCHC (31.0-37.0) g/dL RDW (11.5-15.5) % Plt Count (150-450) k/uL MPV Neutrophils % % Lymphocytes % % Monocytes % % Eosinophils % % Basophils % % Neutrophils # (1.3-7.7) k/uL Lymphocytes # (1.0-4.8) k/uL Monocytes # (0-1.0) k/uL Eosinophils # (0-0.7) k/uL Basophils # (0-0.2) k/uL Sodium 141 (137-145) mmol/L Potassium 3.7 (3.5-5.1) mmol/L Chloride 107 (98-107) mmol/L Carbon Dioxide 26 (22-30) mmol/L Anion Gap 8 mmol/L BUN 10 (7-17) mg/dL Creatinine 0.64 (0.52-1.04) mg/dL Est GFR (CKD-EPI)AfAm >90 (>60 ml/min/1.73 sqM) Est GFR (CKD-EPI)NonAf >90 (>60 ml/min/1.73 sqM) Glucose 90 (74-99) mg/dL Plasma Lactic Acid Gideon 0.9 (0.7-2.0) mmol/L Calcium 8.8 (8.4-10.2) mg/dL Total Bilirubin 0.3 (0.2-1.3) mg/dL AST 21 (14-36) U/L ALT 16 (4-34) U/L Alkaline Phosphatase 66 (38-126) U/L Total Protein 6.4 (6.3-8.2) g/dL Albumin 3.9 (3.5-5.0) g/dL Amylase 89 (30-110) U/L Lipase 210 (23-300) U/L Urine Color Urine Appearance (Clear) Urine pH (5.0-8.0) Ur Specific [place] (1.001-1.035) Urine Protein (Negative) Urine Glucose (UA) (Negative) Urine Ketones (Negative) Urine Blood (Negative) Urine Nitrite (Negative) Urine Bilirubin (Negative) Urine Urobilinogen (<2.0) mg/dL Ur Leukocyte Esterase (Negative) Urine RBC (0-5) /hpf Ur Squamous Epith Cells (0-4) /hpf Urine HCG, Qual Not Detected (Not Detectd) Influenza Type A (PCR) (Not Detectd) Influenza Type B (PCR) (Not Detectd) RSV (PCR) (Not Detectd) SARS-CoV-2 (PCR) (Not Detectd) - EKG Data -: EKG Interpreted by Me (EKG is nsr 61 OR 126 QRS 88 QTc 430) - Radiology Data Radiology results: report reviewed (Chest x-ray and ultrasound pelvis is negative for acute disease), image reviewed Disposition Clinical Impression: Weak Disposition: HOME SELF-CARE Condition: Good Instructions (If sedation given, give patient instructions): Weakness (ED) Is patient prescribed a controlled substance at d/c from ED?: No Referrals: None,Stated [Primary Care Provider] - 1-2 days More Bellamy DO [Doctor of Osteopathic Medicine] - 1-2 days Paul Wheeler MD [STAFF PHYSICIAN] - 1-2 days Time of Disposition: 02:40
[2022-11-02] MEDS ORDERED: SODIUM CHLORIDE 0.9% 1,000 ML IV STA (23:04)
--- NOTE | 2022-11-03 00:59 | US ---
EXAMINATION TYPE: US pelvic complete DATE OF EXAM: 11/03/2022 COMPARISON: 01/21/21 CLINICAL HISTORY: pain. RLQ pain on and off for years. . 3 c-sections, tubal ligation in 2016 TECHNIQUE: . Transabdominal sonographic images of the pelvis were acquired. Transvaginal sonographi c images were medically necessary to better assess the following anatomy: right ovary Date of LMP: 10/31/22 EXAM MEASUREMENTS: Uterus: 9.5 x 6.5 x 6.4 cm Endometrial Stripe: 0.35 cm Right Ovary: 3.4 x 2.2 x 2.1 cm Left Ovary: 2.9 x 2.8 x 1.7 cm 1. Uterus: Anteverted wnl 2. Endometrium: fluid seen within 3. Right Ovary: multiple small follicles visualized 4. Left Ovary: wnl Spectral, color and waveform doppler imaging shows good arterial and venous flow within the ovaries ; there is no evidence for ovarian torsion. 5. Bilateral Adnexa: wnl 6. Posterior cul-de-sac: wnl IMPRESSION: No evidence of ovarian torsion. No adnexal mass or free fluid. No significant abnormality of the uter us and endometrium.
[2022-11-03 01:07] LABS: Basophils # (A) 0.1 k/uL (0-0.2); Basophils % (A) 1 %; Eosinophils # (A) 0.5 k/uL (0-0.7); Eosinophils % (A) 5 %; HCT 35.8 % (34.0-46.0); HGB 12.8 gm/dL (11.4-16.0); Lymphocytes # (A) 3.8 k/uL (1.0-4.8); Lymphocytes % (A) 38 %; MCHC 35.6 g/dL (31.0-37.0); MCV 89.8 fL (80.0-100.0); Mean Platelet Volume 8.3; Monocytes # (A) 0.6 k/uL (0-1.0); Monocytes % (A) 6 %; Neutrophils # (A) 4.8 k/uL (1.3-7.7); Neutrophils % (A) 48 %; Platelet Count 259 k/uL (150-450); RBC 3.99 m/uL (3.80-5.40)
[2022-11-03 01:08] LABS: Appearance,Urine Clear (Clear); Bilirubin,Urine Negative (Negative); Blood,Urine Small (Negative); Color,Urine Colorless; Glucose,Urine (UA) Negative (Negative); Ketones,Urine Negative (Negative); Leukocyte Esterase,Urine Negative (Negative); Nitrite,Urine Negative (Negative); Protein,Urine Negative (Negative); RBC,Urine 2 /hpf (0-5); Specific Gravity,Urine 1.007 (1.001-1.035); Squamous Epithelial Cell,Urine <1 /hpf (0-4); Urobilinogen,Urine <2.0 mg/dL (<2.0)
[2022-11-03 01:22] LABS: ALT 16 U/L (4-34); AST 21 U/L (14-36); African American GFR (CKD) >90 (>60 ml/min/1.73 sqM); Albumin 3.9 g/dL (3.5-5.0); Alkaline Phosphatase 66 U/L (38-126); Amylase 89 U/L (30-110); Anion Gap 8 mmol/L; Blood Urea Nitrogen 10 mg/dL (7-17); Calcium 8.8 mg/dL (8.4-10.2); Carbon Dioxide 26 mmol/L (22-30); Chloride 107 mmol/L (98-107); Glucose 90 mg/dL (74-99); Lipase 210 U/L (23-300); Non-African American GFR(CKD) >90 (>60 ml/min/1.73 sqM); Potassium 3.7 mmol/L (3.5-5.1); Sodium 141 mmol/L (137-145); Total Bilirubin 0.3 mg/dL (0.2-1.3); Total Protein 6.4 g/dL (6.3-8.2)
[2022-11-03 02:50] VITALS: BP 128/74; PULSE 71; RESP 15
== END 2022-11-03 02:50 | disposition home or self-care (01) ==
LOC: EC 19:19
DX: R53.1 Weakness (principal); F32.A Depression, unspecified; F12.90 Cannabis use, unspecified, uncomplicated; F17.200 Nicotine dependence, unspecified, uncomplicated; Z88.1 Allergy status to other antibiotic agents; Z88.2 Allergy status to sulfonamides; Z20.822 Contact with and (suspected) exposure to COVID-19
CPT/HCPCS: 36415; 71046; 76830; 76856; 80053; 81001; 81025; 82150; 83605; 83690; 85025; 87636; 93005; 93975; 94640; 96360; 99285